=== PATIENT | female | born 1990 | race Hispanic/Latino ===

== ENCOUNTER 2018-12-13 12:06 | Emergency (ER) | payer MEDICAID ==
[2018-12-13] MEDS ORDERED: SODIUM CHLORIDE 0.9% 1000ML 1,000 ML IV ONE (13:14)
[2018-12-13] MEDS ORDERED: ONDANSETRON HCL 4 MG/2 ML VIAL ONE (13:14)
[2018-12-13 13:20] LABS: AMPHET/METH SCREEN,URINE NEGATIVE (NEGATIVE); BARBITURATE SCREEN, URINE NEGATIVE (NEGATIVE); BENZODIAZEPINES SCREEN,URINE NEGATIVE (NEGATIVE); CANNABINOID SCREEN,URINE NEGATIVE (NEGATIVE); COCAINE SCREEN,URINE NEGATIVE (NEGATIVE); OPIATE SCREEN,URINE NEGATIVE (NEGATIVE); PHENCYCLIDINE SCREEN,URINE NEGATIVE (NEGATIVE)
[2018-12-13 13:30] LABS: CREATININE 0.8 mg/dL (0.5-1.5); POTASSIUM 3.7 mmol/L (3.5-5.1)
[2018-12-13 13:31] LABS: HCG,QUAL RESULT NEGATIVE (NEGATIVE)
[2018-12-13 13:35] LABS: BASOPHILS % (AUTO) 0.7 % (0.0-5.0); EOSINOPHILS % (AUTO) 1.5 % (0.0-8.0); HEMATOCRIT 38.2 % (36-48); LYMPHOCYTES % (AUTO) 29.2 % (21.0-51.0); MEAN CORPUSCULAR HEMOGLOBIN 31.8 pg (27.0-33.0); MEAN CORPUSCULAR HGB CONC 34.6 g/dL (32.0-36.0); MONOCYTES % (AUTO) 11.2 % (3.0-13.0); NEUTROPHILS % (AUTO) 57.4 % (40.0-77.0); PLATELET COUNT (AUTO) 240 K/uL (130-400); RED BLOOD CELL COUNT(AUTO) 4.15 MIL/uL (4.00-5.50); RED CELL DISTRIBUTION WIDTH 13.2 % (11.0-15.5); WHITE BLOOD COUNT (AUTO) 7.1 K/uL (4.8-10.8)
== END 2018-12-13 15:52 | disposition home or self-care (01) ==
LOC: EDH 12:06
DX: R42 Dizziness and giddiness (principal)
CPT/HCPCS: 36415; 80048; 80305; 81025; 85025; 93005; 96361; 96374; 99285; J2405; J7030

== ENCOUNTER 2019-03-24 16:35 | Emergency (ER) | payer MEDICAID ==
[2019-03-24] MEDS ORDERED: KETOROLAC TROMETHAMINE 60 MG/2 ML VIAL ONE (16:55)
[2019-03-24] MEDS ORDERED: DIAZEPAM 5 MG TABLET ONE (16:56)
[2019-03-24] MEDS ORDERED: LIDOCAINE 5% TOPICAL PATCH TP ONE (16:57)
== END 2019-03-24 17:45 | disposition home or self-care (01) ==
LOC: EDH 16:35
DX: G89.29 Other chronic pain (principal); M54.5 Low back pain; Z88.0 Allergy status to penicillin
CPT/HCPCS: 96372; 99283; J1885

== ENCOUNTER 2019-08-04 10:11 | Emergency (ER) | payer MEDICAID ==
[2019-08-04] MEDS ORDERED: SODIUM CHLORIDE IRRIG SOLUTION 1,000 ML IR ONE (10:12)
[2019-08-04] MEDS ORDERED: ONDANSETRON HCL 4 MG/2 ML VIAL ONE (10:32)
[2019-08-04 10:49] LABS: BASOPHILS % (AUTO) 0.8 % (0.0-5.0); EOSINOPHILS % (AUTO) 1.3 % (0.0-8.0); HEMATOCRIT 35.6 % (36-48); LYMPHOCYTES % (AUTO) 26.9 % (21.0-51.0); MEAN CORPUSCULAR HEMOGLOBIN 31.2 pg (27.0-33.0); MEAN CORPUSCULAR VOLUME 91.8 fL (79-99); MONOCYTES % (AUTO) 12.7 % (3.0-13.0); NEUTROPHILS % (AUTO) 57.9 % (40.0-77.0); PLATELET COUNT (AUTO) 218 K/uL (130-400); RED BLOOD CELL COUNT(AUTO) 3.88 MIL/uL (4.00-5.50); RED CELL DISTRIBUTION WIDTH 12.1 % (11.0-15.5); WHITE BLOOD COUNT (AUTO) 5.2 K/uL (4.8-10.8)
[2019-08-04 10:51] LABS: APPEARANCE,URINE Clear (CLEAR); BILIRUBIN,URINE Negative (NEGATIVE); COLOR,URINE Yellow (YELLOW); GLUCOSE, URINE (UA) Negative (NEGATIVE); KETONES,URINE Negative (NEGATIVE); LEUKOCYTE ESTERASE ,URINE Negative (NEGATIVE); NITRATE,URINE Negative (NEGATIVE); OCCULT BLOOD,URINE Negative (NEGATIVE); PH,URINE 8.5 (5.0-8.0); PROTEIN,URINE Negative (NEGATIVE); UROBILINOGEN,URINE 0.2 mg/dL (0.2-1.0)
[2019-08-04] MEDS ORDERED: LORAZEPAM 2 MG/ML 1 ML VIAL ONE (10:54)
[2019-08-04 10:55] LABS: HCG,QUAL RESULT NEGATIVE (NEGATIVE)
[2019-08-04 11:01] LABS: CREATININE 0.8 mg/dL (0.5-1.5); POTASSIUM 3.9 mmol/L (3.5-5.1)
[2019-08-04 11:05] LABS: BILIRUBIN,DIRECT 0.1 mg/dL (0.0-0.3); BILIRUBIN,TOTAL 0.4 mg/dL (0.2-1.0); TOTAL PROTEIN, SERUM 7.4 g/dL (6.0-8.3)
[2019-08-04 11:08] LABS: AMPHET/METH SCREEN,URINE NEGATIVE (NEGATIVE); BARBITURATE SCREEN, URINE NEGATIVE (NEGATIVE); BENZODIAZEPINES SCREEN,URINE NEGATIVE (NEGATIVE); CANNABINOID SCREEN,URINE NEGATIVE (NEGATIVE); COCAINE SCREEN,URINE NEGATIVE (NEGATIVE); OPIATE SCREEN,URINE NEGATIVE (NEGATIVE); PHENCYCLIDINE SCREEN,URINE NEGATIVE (NEGATIVE)
[2019-08-04] MEDS ORDERED: KETOROLAC TROMETHAMINE 30MG/ML ONE (11:40)
[2019-08-04] MEDS ORDERED: SODIUM CHLORIDE 0.9% 1000ML 1,000 ML IV ONE (11:40)
[2019-08-04 11:48] LABS: BACTERIA,URINE Rare /HPF (None Seen); RBC,URINE 0-1 /HPF (0-1); SQUAMOUS EPITHELIAL CELL,UR Few /HPF (0-2); WBC,URINE 0-1 /HPF (0-1)
[2019-08-04] MEDS ORDERED: HYDROMORPHONE 1 MG/1 ML AMP ONE (12:57)
== END 2019-08-04 14:08 | disposition home or self-care (01) ==
LOC: EDH 10:11
DX: N20.0 Calculus of kidney (principal); Z88.0 Allergy status to penicillin
CPT/HCPCS: 36415; 74176; 80048; 80076; 80305; 81001; 81025; 82550; 83690; 85025; 96361; 96374; 96375; 99284; J1170; J1885; J2060; J2405; J7030

== ENCOUNTER 2024-12-15 22:39 | Emergency (ER) | payer MEDICAID, OTHER ==
[~2024-12-15] VITALS: Ht 175.3 cm; Wt 90.7 kg
--- NOTE | 2024-12-15 22:56 | ERN ---
ED Note History of Present Illness Stated Complaint: MUSCLE WEAKNESS, RASH, MUSCLE WEAKNESS, CP Chief Complaint: Multiple Complaints Time Seen by MD: 22:41 Dictation: PATIENT IS A 34-YEAR-OLD FEMALE COMING IN TODAY WITH COMPLAINTS TO INCLUDE A DIFFUSE RASH HE HAS HAD FOR SEVERAL DAYS THAT HIS PRURITIC. IN ADDITION SHE STATES SHE HAS HAD CHEST PAIN NONRADIATING NO JAW PAIN NO BACK PAIN NO ARM PAIN FOR SEVERAL DAYS. FINALLY SHE STATES SHE IS HAVING MUSCLE WEAKNESS AND JUST DOES NOT FEEL GOOD. 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 SHE STATES SHE IS CURRENTLY ON SYNTHROID AND A NOTHER MEDICATIONS FOR HER TRINH'S HOWEVER HAS NOT HAD AN APPOINTMENT WITH THE [facility] AND [place]. Allergies: Coded Allergies: Penicillins (Unverified Allergy, Unknown, 09/18/18) metoclopramide (Unverified Allergy, Unknown, 12/15/24) midazolam (Unverified Allergy, Unknown, 12/15/24) Past Medical History Past Medical History: Other Additional Past Medical Hx: HASHIMOTOS Surgical History: Cholecystectomy, BTL LMP: Dec 11, 2024 RN Note Reviewed/Agreed w/PFSH: Yes Review of System Dictation CONSTITUTIONAL: NEGATIVE EXCEPT FOR HPI HEAD/FACE: NEGATIVE EXCEPT FOR HPI EENT: NEGATIVE EXCEPT FOR HPI RESPIRATORY: NEGATIVE EXCEPT FOR HPI CHEST PAIN GASTROINTESTINAL/ABDOMINAL: NEGATIVE EXCEPT FOR HPI GENITOURINARY: NEGATIVE EXCEPT FOR HPI MUSCULOSKELETAL: NEGATIVE EXCEPT FOR HPI MUSCLE WEAKNESS/SHAKING INTEGUMENTARY: NEGATIVE EXCEPT FOR HPI DIFFUSE RASH NEUROLOGICAL/PSYCH: NEGATIVE EXCEPT FOR HPI HEMATOLOGIC/LYMPHATIC: NEGATIVE EXCEPT FOR HPI ALL SYSTEMS NEGATIVE, EXCEPT NOTED ABOVE. 13 POINT REVIEW OF SYSTEMS ASSESSED AND ALL NEGATIVE EXCEPT FOR ABOVE. Initial Vital Sign VS Vital Signs Date Time Temp Pulse Resp B/P (MAP) Pulse Ox O2 Delivery O2 Flow Rate FiO2 12/15/24 22:40 98.8 90 20 159/106 100 Room Air 12/15/24 23:43 0 21 Physical Exam Dictation VITAL SIGNS REVIEWED GENERAL APPEARANCE: ALERT, ORIENTED X 3, MILD ACUTE DISTRESS, WELL DEVELOPED, NOURISHED. HEAD AND FACE: NON-TRAUMATIC. EYES: PERRL, PINK CONJUNCTIVAS, EYELID NO TRAUMA, ANTERIOR CHAMBER WITH ARCUS SENILIS. EARS: PINNAS INTACT AND NO SIGNS OF TRAUMA OR ERYTHEMA EAR CANALS CLEAR AND NO DISCHARGE TM NO ERYTHEMA NOSE: NO DISCHARGE, NO BLEEDING. OROPHARYNX: MOUTH NORMAL, TONGUE PINK, PHARYNX CLEAR,NO ERYTHEMA, TONSILS NO EXUDATES, NO ABSCESSES NOTED, MUCOUS MEMBRANE MOIST NECK: SUPPLE, NON-TENDER, NO THYROMEGALY, NO MASSES, NO JVD, NO BRUITS BREAST:DEFERRED CHEST:NO TENDERNESS, NO CREPITUS, NO PARADOXICAL MOVEMENT, NO RETRACTIONS LUNGS:CLEAR, WELL-VENTILATED, SYMMETRIC, NO RALES, NO WHEEZING, NO RHONCHI, NO STRIDOR, GOOD BREATH SOUNDS BILATERALLY HEART: REGULAR RATE, REGULAR RHYTHM, NO MURMUR, NO GALLOPS VASCULAR: NO PERIPHERAL EDEMA, ABDOMEN: SOFT, POSITIVE BOWEL SOUNDS, NONDISTENDED, NO GUARDING, NONTENDER, NO REBOUND, NO MASSES NO HEPATOMEGALY, NO SPLENOMEGALY, NO MORENO'S SIGN, NO HERNIAS. RECTAL: DEFERRED GENITAL: DEFERRED NEUROLOGICAL: NORMAL SPEECH, MOTOR FUNCTION INTACT, SENSORY FUNCTION INTACT MUSCULOSKELETAL: NECK NONTENDER, FULL RANGE OF MOTION, BACK NONTENDER, FULL RANGE OF MOTION, EXTREMITIES: NONTENDER, FULL RANGE OF MOTION SKIN: COLOR PINK, SHE HAS A MACULAR RASH TO HER ABDOMEN THORAX BACK FLEXOR SURFACES OF HER LEGS KNEES AND ELBOWS. DOES NOT APPEAR SCABIES NO URTICARIA LYMPHATIC: DEFERRED Results (Laboratory/Radiology) Laboratory/Radiology Laboratory Tests Test 12/15/24 22:50 12/15/24 22:54 White Blood Count 8.5 K/uL (4.8-10.8) Red Blood Count 4.02 MIL/uL (4.00-5.50) Hemoglobin 12.7 g/dL (12.0-16.0) Hematocrit 38.5 % (36-48) Mean Corpuscular Volume 95.8 fL (79-99) Mean Corpuscular Hemoglobin 31.6 pg (27.0-33.0) Mean Corpuscular Hemoglobin Concent 33.0 g/dL (32.0-36.0) Red Cell Distribution Width 13.7 % (11.0-15.5) Platelet Count 276 K/uL (130-400) Mean Platelet Volume 10.5 fL (7.5-10.5) Immature Granulocyte % (Auto) 0.4 % (0-1) Neutrophils (%) (Auto) 52.4 % (40.0-77.0) Lymphocytes (%) (Auto) 30.5 % (21.0-51.0) Monocytes (%) (Auto) 10.9 % (3.0-13.0) Eosinophils (%) (Auto) 5.2 % (0.0-8.0) Basophils (%) (Auto) 0.6 % (0.0-5.0) Neutrophils # (Auto) 4.4 K/uL (1.8-7.7) Lymphocytes # (Auto) 2.6 K/uL (1.0-4.8) Monocytes # (Auto) 0.9 K/uL (0.1-1.0) Eosinophils # (Auto) 0.44 K/uL (0.00-0.70) Basophils # (Auto) 0.05 K/uL (0.00-0.20) Absolute Immature Granulocyte (auto 0.03 K/uL (0-1) Nucleated Red Blood Cells 0.0 % (0.0-0.19) Sodium Level 139 mmol/L (136-145) Potassium Level 4.1 mmol/L (3.5-5.1) Chloride Level 100 mmol/L (101-111) L Carbon Dioxide Level 30 mmol/L (21-32) Blood Urea Nitrogen 7 mg/dL (7-18) Creatinine 0.8 mg/dL (0.5-1.0) Glomerular Filtration Rate Calc 99 mL/min (>90) Random Glucose 97 mg/dL (70-105) Total Calcium 8.5 mg/dL (8.5-10.1) Magnesium Level 2.10 mg/dL (1.80-2.40) Total Creatine Kinase 62 U/L (21-232) # Troponin I High Sensitivity 4 ng/L (4-50) Urine Color COLORLESS (YELLOW) Urine Appearance CLEAR (CLEAR) Urine pH 7.0 (5.0-8.0) Urine Specific Ellis 1.003 (1.001-1.031) Urine Protein NEGATIVE mg/dL (NEGATIVE) Urine Glucose (UA) NEGATIVE mg/dL (NEGATIVE) Urine Ketones NEGATIVE mg/dL (NEGATIVE) Urine Occult Blood SMALL (NEGATIVE) H Urine Nitrate NEGATIVE (NEGATIVE) Urine Bilirubin NEGATIVE mg/dL (NEGATIVE) Urine Urobilinogen 0.2 mg/dL (0.2-1.0) Urine Leukocyte Esterase NEGATIVE Ruthie/uL Urine RBC 0-1 /HPF (0-1) Urine WBC None /HPF (0-1) Urine Squamous Epithelial Cells RARE /HPF (0-2) Urine Bacteria None /HPF (None Seen) Labs Reviewed?: Yes EKG Comment: EKG SINUS RHYTHM HEART RATE 84/AXIS NORMAL/QT INTERVAL 2352ND EKG NORMAL SINUS RHYTHM/HEART RATE 76/AXIS NORMAL/NO ECTOPY ED Course ED Course Orders Procedure Category Date Status Time Vital Signs Per CPOE 12/15/24 Transmitted Routine 22:40 Chest 1vw RAD 12/15/24 Resulted 22:40 12 Lead Ekg Tracing- EKG 12/15/24 Complete Technical 22:40 Oxygen By Nc/Pulse Ox CPOE 12/15/24 Transmitted 22:40 Maintain Iv CPOE 12/15/24 Transmitted 22:40 Iv Insertion CPOE 12/15/24 Transmitted 22:40 Cardiac Monitoring CPOE 12/15/24 Transmitted 22:40 Pulse Oximetry With CPOE 12/15/24 Transmitted Vs And Prn 22:40 Cbc With Differential LAB 12/15/24 Complete 22:40 Activity: Br W/Brp CPOE 12/15/24 Transmitted With Assist 22:40 Creatine Kinase, Total LAB 12/15/24 Complete 22:40 Troponin I High LAB 12/15/24 Complete Sensitivity 22:40 Urinalysis Profile LAB 12/15/24 Complete 22:40 Basic Metabolic Panel LAB 12/15/24 Complete 22:40 Magnesium LAB 12/15/24 Complete 22:50 0.9%Nacl 1000ml (Ns PHA 12/16/24 Complete 1000ml) 00:00 Ondansetron 4mg Inj PHA 12/16/24 Complete (Zofran 4mg Inj) 00:00 Hydrocortisone Suc PHA 12/16/24 Complete 100mg (Solu-Cortef 1 00:00 12 Lead Ekg Tracing- EKG 12/15/24 Logged Technical 23:49 Current Medications Medications (Trade) Dose Ordered Sig/Reyna Route PRN Reason Start Time Stop Time Status Last Admin Dose Admin Hydrocortisone Sodium Succinate (Solu-corTEF 100MG) 100 mg ONCE ONCE IV 12/16/24 00:00 12/16/24 00:01 DC 12/15/24 23:55 Ondansetron HCl (zoFRAN 4MG INJ) 4 mg ONCE ONCE IVP 12/16/24 00:00 12/16/24 00:01 DC 12/15/24 23:55 Sodium Chloride 1,000 ml @ 0 mls/hr ONCE ONCE IV 12/16/24 00:00 12/16/24 00:01 DC 12/15/24 23:55 Vital Signs Date Time Temp Pulse Resp B/P (MAP) Pulse Ox O2 Delivery O2 Flow Rate FiO2 12/15/24 23:43 80 18 151/99 97 Room Air* 0 21 12/15/24 22:40 98.8 90 20 159/106 100 Room Air 0030/PATIENT HAD A NEAR SYNCOPAL EPISODE AND LAID DOWN IN THE HALLWAY. SHE WAS ALERT SHE STATES SHE FELT DIZZY. IN LAID DOWN. NIH IS 0 THERE WAS NO CHEST PAIN NO BACK PAIN NO HEADACHE. REPEAT EKG WAS NORMAL SINUS RHYTHM PATIENT WILL BE DISCHARGED HOME TO HER TO FOLLOW UP WITH HER PRIMARY CARE DOCTOR NEXT WEEK. HEART Score Response (Comments) Value EKG: Repolarization changes 1 Age: < 45yrs (0) 0 Risk Factors: No known risk factors (0) 0 Initial Troponin: Normal limit (0) 0 Total 1 Medical Decision Making MDM MDM: DIFFERENTIAL DIAGNOSIS: DERMATITIS/ACS/AMI/ELECTROLYTE IMBALANCE/DEHYDRATION/HYPOMAGNESEMIA/ RATIONALE: TESTS CONSIDERED AND ORDERED SECONDARY TO SHARED DECISION MAKING INCLUDE: EKG/LABS PREVIOUS OUTSIDE RECORDS REVIEWED: OLD ER VISITS. RISK OF COMPLICATION AND/OR MORBIDITY OR MORTALITY OF PATIENT MANAGEMENT: NONE MEDICATIONS-PER MEDICATION RECONCILIATION NEED FOR HOSPITALIZATION: PATIENT DOES NOT MEET CRITERIA FOR HOSPITALIZATION. NONE NEED FOR EMERGENCY MAJOR/MINOR SURGERY: NO THERE ARE NO SOCIAL CONCERNS WITH THIS PATIENT. PRESCRIPTION DRUG MANAGEMENT PREDNISONE PRESCRIPTIONS WILL INCLUDE SYMPTOMATIC CARE PATIENT'S PRIOR EXTERNAL MEDICAL RECORDS FROM OTHER ER VISITS WERE REVIEWED BY ME INDICATED. PRIOR TESTING AND RESULTS FROM PREVIOUS VISITS WERE REVIEWED. PRIOR TESTS WERE TAKEN INTO ACCOUNT WITH MEDICAL DECISION MAKING AND RESOURCE UTILIZATION, INDEPENDENT HISTORIAN/HISTORIANS WERE USED TO OBTAIN COMPLETE MEDICAL HISTORY. I INDEPENDENTLY INTERPRETED THE TEST THAT WERE PERFORMED, RESULTS WERE REVIEWED BY ME AND CONSIDERED FINDINGS ON RADIOLOGY IF ORDERED. MEDICAL MANAGEMENT AND EXAMINATION INTERPRETATION DISCUSSIONS WERE HAD BY ME WITH OTHER QUALIFIED HEALTHCARE PROFESSIONALS INDICATED FOR THE PATIENT'S CARE. DX & DISP Disposition: Discharge Departure Impression: Primary Impression: Dermatitis Additional Impressions: Vasovagal near-syncope, Trinh's thyroiditis Condition: Stable Scripts Prednisone (Prednisone) 20 Mg Tablet 1 TAB PO DAILY for 5 Days, #5 TAB 0 Refills TAKE 1 TAB BY MOUTH THREE TIMES PER DAY X3 DAYS, THEN TAKE 1 TAB BY MOUTH TWICE A DAY X2 DAYS, THEN TAKE 1 TAB BY MOUTH ONCE A DAY X1 DAY. Prov: IRINEO GALVAN NP 12/16/24 Additional Instructions: FOLLOW-UP WITH PRIMARY CARE PROVIDER IN 1 TO 2 DAYS. TAKE MEDICATIONS DIRECTED HERE IN THE EMERGENCY ROOM. OKAY TO CONTINUE HOME MEDICATIONS UNLESS OTHERWISE DISCUSSED DURING YOUR VISIT IN THE EMERGENCY ROOM TODAY. RETURN TO YOUR NEAREST EMERGENCY ROOM IF SYMPTOMS WORSEN OR IF THERE IS NO IMPROVEMENT. CALL 911 IF YOU NEED IMMEDIATE ASSISTANCE. TAKE TYLENOL OR MOTRIN [id number] NEEDED AND IF NO CONTRAINDICATIONS ARE PRESENT. INCREASE ORAL HYDRATION. A WOUND CULTURE OR URINE CULTURE WAS ORDERED HERE IN THE EMERGENCY ROOM DEPARTMENT PLEASE FOLLOW-UP WITH PRIMARY CARE PROVIDER AND ADVISE THEM TO GET REPEAT PORTS FROM OUR FACILITY. IF YOU HAD ANY FOX WRAP/SPLINTS THAT WERE APPLIED HERE, PLEASE DO NOT REMOVE THEM UNTIL YOU SEE YOUR PRIMARY CARE OR SPECIALTY. TAKE PREDNISONE DAILY DIRECTED WITH FOOD UNTIL GONE. SEE YOUR PRIMARY CARE DOCTOR ON WEDNESDAY FOR REFERRAL TO ENDOCRINOLOGY. Referrals: BROOK SUGGS MD (PCP) Time of Disposition: 00:32 I have reviewed the case, and I agree with, Diagnosis and Plan IRINEO GALVAN NP Dec 15, 2024 22:56
[2024-12-15 23:07] LABS: IMMATURE GRANULOCYTE ABSOLUTE 0.03 K/uL (0-1); NUCLEATED RED BLOOD CELLS 0.0 % (0.0-0.19); PLATELET COUNT (AUTO) 276 K/uL (130-400); RED BLOOD CELL COUNT(AUTO) 4.02 MIL/uL (4.00-5.50); RED CELL DISTRIBUTION WIDTH 13.7 % (11.0-15.5); WHITE BLOOD COUNT (AUTO) 8.5 K/uL (4.8-10.8)
[2024-12-15 23:09] LABS: APPEARANCE,URINE CLEAR (CLEAR); GLUCOSE, URINE (UA) NEGATIVE (NEGATIVE); LEUKOCYTE ESTERASE ,URINE NEGATIVE Leu/uL (NEGATIVE); NITRATE,URINE NEGATIVE (NEGATIVE); OCCULT BLOOD,URINE SMALL (NEGATIVE)
[2024-12-15 23:10] LABS: ADD UA MICROSCOPIC YES; SQUAMOUS EPITHELIAL CELL,UR RARE /HPF (0-2)
[2024-12-15 23:17] LABS: CREATININE 0.8 mg/dL (0.5-1.0); GLOMERULAR FILTR. RATE CALC 99.0 mL/min (>90); GLUCOSE,RANDOM 97.0 mg/dL (70-105); SODIUM SERUM 139.0 mmol/L (136-145); UREA NITROGEN, BLOOD 7.0 mg/dL (7-18)
[2024-12-15 23:21] LABS: CREATINE KINASE, TOTAL 62.0 U/L (21-232)
--- NOTE | 2024-12-15 23:37 | HMCIMG ---
EXAM: CR Chest, 1 view CLINICAL HISTORY: Chest pain. COMPARISON: None provided. FINDINGS: The lungs show no infiltrates or other acute findings. No pleural effusion or pneumothorax. The cardiomediastinal silhouette is within normal limits. No acute osseous abnormality. IMPRESSION: No acute cardiopulmonary process is evident. /[place]
[2024-12-15] MEDS: 0.9%NACL 1000ML 1,000 ML IV ONE (23:55)
--- NOTE | 2024-12-15 23:56 | EKG ---
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
[2024-12-16] MEDS ORDERED: PRED20TA3 PO (00:34)
[2024-12-16 00:40] VITALS: BP 155/88; PULSE 85; RESP 17; TEMP 98.4; O2SAT 99
--- NOTE | 2024-12-16 07:30 | EKG ---
[facility] Test Date: 2024-12-15 Test Time: 22:43:22 Pat Name: TONO RODAS Department: ED Room: Gender: F Manager Meat: 08 : 1990 Requested By: IRINEO GALVAN Order Number: [id number] Reading MD: Eusebio Mccann Measurements Intervals [place] Rate: 84 P: 0 NV: 0 QRS: 24 QRSD: 104 T: 43 QT: 430 QTc: 508 Interpretive Statements NSR Prolonged QT interval Compared to ECG 12/13/2018 13:30:32 Accelerated junctional rhythm now present Prolonged QT interval now present Sinus rhythm no longer present Electronically Signed On 12-16-2024 16:38:58 CDT by Eusebio Mccann Please click the below link to view image of tracing.
== END 2024-12-16 00:48 | disposition home or self-care (01) ==
LOC: EDH 22:39
DX: L30.9 Dermatitis, unspecified (principal); R55 Syncope and collapse; E06.3 Autoimmune thyroiditis; Z88.0 Allergy status to penicillin; Z90.49 Acquired absence of other specified parts of digestive tract; Z98.51 Tubal ligation status
CPT/HCPCS: 99285; 96374; 71045; 96375; 82550; 83735; 84484; 80048; 85025; 81001; 36415; 93005 ×2; J7030; J1720; J2405